=== PATIENT | female | born 1955 | race Hispanic/Latino ===

== ENCOUNTER 2020-12-07 18:35 | Inpatient (IN) | payer OTHER ==
[~2020-12-07] VITALS: Ht 160 cm; Wt 39.5 kg
[2020-12-07] MEDS: SODIUM CHLORIDE 0.9% 1000ML 1,000 ML IV SCH (01:30)
[2020-12-07 19:46] LABS: BASOPHILS % 0.2 % (0.0-1.0); EOSINOPHILS % 0.3 % (0.0-6.0); HEMATOCRIT 42.6 % (34.2-44.1); HEMOGLOBIN 14.1 g/dL (12.0-16.0); LYMPHOCYTES # (AUTO) 1.7 (1.0-3.2); LYMPHOCYTES % 18.4 % (18.0-39.1); MEAN CORPUSCULAR HEMOGLOBIN 30.7 pg (28-32); MEAN CORPUSCULAR HGB CONC 33.1 g/dL (31-35); MEAN CORPUSCULAR VOLUME 92.6 fL (81-99); MONOCYTES # (AUTO) 1.1 (0.2-0.8); MONOCYTES % 11.5 % (4.4-11.3); NEUTROPHILS # (AUTO) 6.4 (2.1-6.9); NEUTROPHILS % 69.4 % (38.7-80.0); PLATELET COUNT 290 x10e3/uL (140-360)
[2020-12-07 20:04] LABS: ALANINE AMINOTRANSFERASE 12 IU/L (0-55); ALBUMIN 4.4 g/dL (3.5-5.0); ALBUMIN/GLOBULIN RATIO 1.3 (0.8-2.0); ALKALINE PHOSPHATASE 65 IU/L (40-150); ANION GAP 17.6 mmol/L (8-16); BLOOD UREA NITROGEN 26 mg/dL (7-26); BUN/CREATININE RATIO 43 (6-25); CALCIUM 9.5 mg/dL (8.4-10.2); CARBON DIOXIDE 26 mmol/L (22-29); CHLORIDE 102 mmol/L (98-107); CREATINE KINASE 295 IU/L (29-168); CREATININE, SERUM 0.61 mg/dL (0.57-1.11); EST GLOMERULAR FILTRATION RATE > 60 ML/MIN (60-); GLUCOSE 97 mg/dL (74-118); POTASSIUM 3.6 mmol/L (3.5-5.1); SODIUM 142 mmol/L (136-145)
[2020-12-07] MEDS ORDERED: SODIUM CHLORIDE 0.9% 1000ML 1,000 ML IV STA (20:05)
[2020-12-07] MEDS ORDERED: SODIUM CHLORIDE 0.9% 1000ML 1,000 ML ONE (20:16)
[2020-12-07] MEDS ORDERED: SODIUM CHLORIDE 0.9% 1000ML 1,000 ML IV ONE (22:00)
[2020-12-07 22:28] LABS: CLARITY,URINE SL CLOUDY (CLEAR); COLOR,URINE YELLOW (YELLOW); KETONES,URINE 2+ (NEGATIVE); LEUKOCYTE ESTERASE ,URINE TRACE (NEGATIVE); NITRITE,URINE NEGATIVE (NEGATIVE); PROTEIN,URINE DIPSTICK NEGATIVE (NEGATIVE); URINE UROBILINOGEN 1 mg/dL (0.2 - 1)
[2020-12-07 22:51] LABS: BACTERIA,URINE MANY /HPF
[2020-12-07 22:52] LABS: EPITHELIAL CELLS,URINE FEW /LPF; HYALINE CASTS 0-1 (0-1); MUCUS,URINE FEW (RARE)
[2020-12-08] VITALS (9 sets, daily range): BP systolic 119–164; BP diastolic 59–86
[2020-12-08] MEDS: DEXTROSE 50% SYRINGE 50 ML IV PRN ×2 (01:15→11:23)
[2020-12-08 05:33] LABS: BASOPHILS % 0.2 % (0.0-1.0); EOSINOPHILS % 0.2 % (0.0-6.0); HEMATOCRIT 36.9 % (34.2-44.1); HEMOGLOBIN 12.2 g/dL (12.0-16.0); LYMPHOCYTES # (AUTO) 1.5 (1.0-3.2); LYMPHOCYTES % 16.9 % (18.0-39.1); MEAN CORPUSCULAR HEMOGLOBIN 30.8 pg (28-32); MEAN CORPUSCULAR HGB CONC 33.1 g/dL (31-35); MEAN CORPUSCULAR VOLUME 93.2 fL (81-99); MONOCYTES # (AUTO) 1.1 (0.2-0.8); NEUTROPHILS # (AUTO) 6.2 (2.1-6.9); NEUTROPHILS % 70.5 % (38.7-80.0); PLATELET COUNT 235 x10e3/uL (140-360); RED BLOOD COUNT 3.96 x10e6/uL (3.6-5.1); RED CELL DISTRIBUTION WIDTH 13.1 % (11.7-14.4)
[2020-12-08 06:01] LABS: CREATINE KINASE MB 1.9 ng/mL (0-5.0)
[2020-12-08] MEDS ORDERED: INSULIN REGULAR, HUMAN 100 UNIT/1 ML 3ML VIAL SQ SCH (07:30)
[2020-12-08] MEDS ORDERED: HYDROXYZINE HCL25 MG PO (09:54)
[2020-12-08] MEDS ORDERED: CARBIDOPA-LEVO1 EA10 PO (09:54)
[2020-12-08] MEDS ORDERED: AMANTADINE100 M1 PO (09:54)
[2020-12-08] MEDS ORDERED: METFORMIN HCL500 MG PO (09:54)
[2020-12-08] MEDS ORDERED: CYMBALTA30 MG PO (09:54)
[2020-12-08] MEDS ORDERED: ATORVASTATIN CA20 MG PO (09:54)
[2020-12-08] MEDS ORDERED: OMEPRAZOLE10 MG PO (09:54)
[2020-12-08] MEDS ORDERED: ZESTRIL10 MG PO (09:54)
[2020-12-08] MEDS ORDERED: BAYER WOMEN'S1 EACH PO (09:57)
[2020-12-08] MEDS ORDERED: NASONEX17 GM (09:57)
[2020-12-08] MEDS ORDERED: HYDRALAZINE HCL 20 MG/ML VIAL IV PRN (10:30)
[2020-12-08] MEDS: INSULIN REGULAR, HUMAN 100 UNIT/1 ML 3ML VIAL SQ SCH ×2 (11:00→18:00)
[2020-12-08] MEDS: CEFTRIAXONE SOD 1 GM in SODIUM CHLORIDE 0.9% 50ML 50 ML IV SCH (11:02)
[2020-12-08] MEDS: LORAZEPAM INJ 2 MG/ML VIAL IV PRN ×2 (11:02→20:56)
[2020-12-08] MEDS: FAMOTIDINE 20 MG/2 ML VIAL IV SCH ×2 (11:02→20:53)
[2020-12-08] MEDS: SODIUM CHLORIDE 0.9% 1000ML 1,000 ML IV SCH (11:05)
[2020-12-08] MEDS: CARBIDOPA/LEVODOPA 25/100 TAB PO SCH ×3 (13:00→20:57)
[2020-12-08] MEDS ORDERED: LEVODOPA PO SCH (13:00)
[2020-12-08] MEDS ORDERED: CARBIDOPA PO SCH (13:00)
[2020-12-08] MEDS ORDERED: PROPOFOL IV EMULSION 10 MG/ML 20 ML VIAL ONE (13:27)
[2020-12-08 14:45] LABS: CREATINE KINASE MB 1.7 ng/mL (0-5.0)
[2020-12-08] MEDS: AMANTADINE HCL 100 MG CAP PO SCH (15:57)
[2020-12-08] MEDS ORDERED: AMANTADINE HCL PO SCH (17:00)
[2020-12-08] MEDS ORDERED: DEXTROSE 5% 250ML 250 ML IV ONE (17:05)
[2020-12-08] MEDS: ACETAMINOPHEN 1000 MG/100 ML IV PRN (20:57)
[2020-12-08 22:03] LABS: CREATINE KINASE MB 1.4 ng/mL (0-5.0)
[2020-12-09] VITALS (8 sets, daily range): BP systolic 125–139; BP diastolic 50–74
[2020-12-09] MEDS: DEXTROSE 5%/0.9% SOD CHL 1,000 ML IV SCH ×2 (03:47→03:48)
[2020-12-09 05:09] LABS: BASOPHILS % 0.2 % (0.0-1.0); EOSINOPHILS % 0.1 % (0.0-6.0); HEMATOCRIT 37.4 % (34.2-44.1); HEMOGLOBIN 12.7 g/dL (12.0-16.0); LYMPHOCYTES # (AUTO) 1.2 (1.0-3.2); LYMPHOCYTES % 10.9 % (18.0-39.1); MEAN CORPUSCULAR HEMOGLOBIN 30.8 pg (28-32); MEAN CORPUSCULAR VOLUME 90.8 fL (81-99); MONOCYTES # (AUTO) 0.8 (0.2-0.8); MONOCYTES % 7.9 % (4.4-11.3); NEUTROPHILS # (AUTO) 8.6 (2.1-6.9); NEUTROPHILS % 80.7 % (38.7-80.0); PLATELET COUNT 219 x10e3/uL (140-360); RED BLOOD COUNT 4.12 x10e6/uL (3.6-5.1); RED CELL DISTRIBUTION WIDTH 12.8 % (11.7-14.4)
[2020-12-09 05:32] LABS: ANION GAP 13.8 mmol/L (8-16); BLOOD UREA NITROGEN < 5 mg/dL (7-26); CALCIUM 8.2 mg/dL (8.4-10.2); CARBON DIOXIDE 28 mmol/L (22-29); CHLORIDE 101 mmol/L (98-107); CREATININE, SERUM 0.56 mg/dL (0.57-1.11); EST GLOMERULAR FILTRATION RATE > 60 ML/MIN (60-); GLUCOSE 126 mg/dL (74-118); SODIUM 140 mmol/L (136-145)
[2020-12-09] MEDS: INSULIN REGULAR, HUMAN 100 UNIT/1 ML 3ML VIAL SQ SCH ×4 (05:57→17:45)
[2020-12-09 06:09] LABS: BUN/CREATININE RATIO 9 (6-25)
[2020-12-09 06:10] LABS: POTASSIUM 2.8 mmol/L (3.5-5.1)
[2020-12-09] MEDS ORDERED: SOD CHL IV ONE (06:50)
[2020-12-09] MEDS ORDERED: DEXTROSE IV ONE (06:50)
[2020-12-09] MEDS ORDERED: POTASSIUM CHL IV ONE (06:50)
[2020-12-09] MEDS: AMANTADINE HCL 100 MG CAP PO SCH ×2 (09:00→16:10)
[2020-12-09] MEDS: CARBIDOPA/LEVODOPA 25/100 TAB PO SCH ×4 (09:00→21:36)
[2020-12-09] MEDS: FAMOTIDINE 20 MG/2 ML VIAL IV SCH ×2 (09:01→21:36)
[2020-12-09] MEDS: CEFTRIAXONE SOD 1 GM in SODIUM CHLORIDE 0.9% 50ML 50 ML IV SCH (11:00)
[2020-12-09] MEDS: ACETAMINOPHEN 1000 MG/100 ML IV PRN (16:41)
[2020-12-09] MEDS: D5.45%NS/KCL 20MEQ 1,000 ML IV SCH (19:42)
[2020-12-10] VITALS: BP 135/71
[2020-12-10] MEDS: INSULIN REGULAR, HUMAN 100 UNIT/1 ML 3ML VIAL SQ SCH ×4 (00:40→18:00)
[2020-12-10 04:00] VITALS: BP 128/68
[2020-12-10] MEDS: D5.45%NS/KCL 20MEQ 1,000 ML IV SCH (06:08)
[2020-12-10 06:15] LABS: BASOPHILS % 0.3 % (0.0-1.0); EOSINOPHILS % 0.3 % (0.0-6.0); HEMATOCRIT 38.3 % (34.2-44.1); HEMOGLOBIN 12.9 g/dL (12.0-16.0); LYMPHOCYTES # (AUTO) 1.1 (1.0-3.2); LYMPHOCYTES % 10.4 % (18.0-39.1); MEAN CORPUSCULAR HEMOGLOBIN 30.7 pg (28-32); MEAN CORPUSCULAR HGB CONC 33.7 g/dL (31-35); MEAN CORPUSCULAR VOLUME 91.2 fL (81-99); MONOCYTES # (AUTO) 0.8 (0.2-0.8); MONOCYTES % 7.8 % (4.4-11.3); NEUTROPHILS # (AUTO) 8.1 (2.1-6.9); NEUTROPHILS % 80.8 % (38.7-80.0); PLATELET COUNT 237 x10e3/uL (140-360); RED CELL DISTRIBUTION WIDTH 13.2 % (11.7-14.4)
[2020-12-10 06:36] LABS: ANION GAP 11.6 mmol/L (8-16); BLOOD UREA NITROGEN 5 mg/dL (7-26); BUN/CREATININE RATIO 10 (6-25); CARBON DIOXIDE 28 mmol/L (22-29); CHLORIDE 104 mmol/L (98-107); CREATININE, SERUM 0.51 mg/dL (0.57-1.11); EST GLOMERULAR FILTRATION RATE > 60 ML/MIN (60-); GLUCOSE 131 mg/dL (74-118); POTASSIUM 3.6 mmol/L (3.5-5.1); SODIUM 140 mmol/L (136-145)
[2020-12-10 07:26] LABS: MAGNESIUM 1.4 MG/DL (1.3-2.1); PHOSPHORUS 2.1 MG/DL (2.3-4.7)
[2020-12-10 08:02] VITALS: BP 137/65
[2020-12-10] MEDS: CARBIDOPA/LEVODOPA 25/100 TAB PO SCH ×3 (09:00→17:40)
[2020-12-10] MEDS: FAMOTIDINE 20 MG/2 ML VIAL IV SCH (09:00)
[2020-12-10] MEDS: AMANTADINE HCL 100 MG CAP PO SCH ×2 (09:00→16:58)
[2020-12-10] MEDS ORDERED: MAGNESIUM SULFATE 2GM/50ML IV ONE (09:15)
[2020-12-10] MEDS ORDERED: LORAZEPAM 0.5 MG TAB PEG PRN (09:15)
[2020-12-10 09:44] VITALS: BP 137/65
[2020-12-10] MEDS ORDERED: MAGNESIUM SULFATE 2GM/50ML 50 ML IV ONE (09:45)
[2020-12-10] MEDS ORDERED: POTASSIUM PHOSPHATE 20 MM in SODIUM CHLORIDE 0.9% 250ML 250 ML IV ONE (10:30)
[2020-12-10 12:42] VITALS: BP 143/60
[2020-12-10] MEDS: CEPHALEXIN 500 MG CAP PEG SCH ×2 (14:33→17:40)
[2020-12-10] MEDS ORDERED: FAMOTIDINE 20 MG TAB PEG SCH (16:30)
[2020-12-10 17:11] VITALS: BP 138/75
== END 2020-12-10 19:00 | disposition hospice, inpatient (51) | DRG 640 ==
LOC: ER 19:24 → ERHOLD 21:52 → MED/SURG2 23:05 → OBSVTOIN 12-08 10:19
PROVIDERS: ADMIT Internal Medicine; ATTEND Internal Medicine
PROC: 0DH63UZ Insertion of Feeding Device into Stomach, Percutaneous Approach (ICD-10-PCS; principal; 2020-12-08 16:00)
DX: R62.7 Adult failure to thrive (principal); J69.0 Pneumonitis due to inhalation of food and vomit; N39.0 Urinary tract infection, site not specified; E44.0 Moderate protein-calorie malnutrition; Z68.1 Body mass index [BMI] 19.9 or less, adult; G20 Parkinson's disease; F02.80 Dementia in other diseases classified elsewhere, unspecified severity, without behavioral disturbance, psychotic disturbance, mood disturbance, and anxiety; K20.90 Esophagitis, unspecified without bleeding; K29.70 Gastritis, unspecified, without bleeding; N31.9 Neuromuscular dysfunction of bladder, unspecified; R31.29 Other microscopic hematuria; Z20.822 Contact with and (suspected) exposure to COVID-19; Z74.01 Bed confinement status
CPT/HCPCS: 36415; 43246; 51700; 80048; 80053; 81001; 82550; 82553; 82607; 82746; 82948; 83036; 83690; 83735; 84100; 84443; 84484; 85025; 87086; 96361; 99284; G0378; J0696; J2060; J3475; J3480; J7030; J7042; J7050; J7070; J7799; U0002

== ENCOUNTER 2021-01-04 13:03 | Inpatient (IN) | payer OTHER ==
[~2021-01-04] VITALS: Ht 160 cm; Wt 41.3 kg
[~2021-01-04 13:03] MED LIST: AMANTADINE100 M1 PO; ATORVASTATIN CA20 MG PO; BAYER WOMEN'S1 EACH PO; CARBIDOPA-LEVO1 EA10 PO; CYMBALTA30 MG PO; HYDROXYZINE HCL25 MG PO; METFORMIN HCL500 MG PO; NASONEX17 GM; OMEPRAZOLE10 MG PO; ZESTRIL10 MG PO
[2021-01-04] MEDS ORDERED: SODIUM CHLORIDE 0.9% 1000ML 1,000 ML IV STA (14:25)
[2021-01-04 15:07] LABS: BASOPHILS % 0.3 % (0.0-1.0); EOSINOPHILS # (AUTO) 0.1 (0.0-0.4); EOSINOPHILS % 0.7 % (0.0-6.0); HEMATOCRIT 40.4 % (34.2-44.1); HEMOGLOBIN 13.1 g/dL (12.0-16.0); LYMPHOCYTES # (AUTO) 1.2 (1.0-3.2); LYMPHOCYTES % 15.9 % (18.0-39.1); MEAN CORPUSCULAR HEMOGLOBIN 29.8 pg (28-32); MEAN CORPUSCULAR HGB CONC 32.4 g/dL (31-35); MONOCYTES # (AUTO) 0.9 (0.2-0.8); MONOCYTES % 11.6 % (4.4-11.3); NEUTROPHILS # (AUTO) 5.4 (2.1-6.9); NEUTROPHILS % 71.2 % (38.7-80.0); PLATELET COUNT 403 x10e3/uL (140-360); RED BLOOD COUNT 4.39 x10e6/uL (3.6-5.1); RED CELL DISTRIBUTION WIDTH 13.1 % (11.7-14.4)
[2021-01-04 15:41] LABS: INR 1.03; PROTHROMBIN TIME 14.1 seconds (11.9-14.5)
[2021-01-04 15:42] LABS: PARTIAL THROMBOPLASTIN TIME 32.7 seconds (23.8-35.5)
[2021-01-04 15:54] LABS: ALANINE AMINOTRANSFERASE 26 IU/L (0-55); ALBUMIN 3.3 g/dL (3.5-5.0); ALBUMIN/GLOBULIN RATIO 0.7 (0.8-2.0); ALKALINE PHOSPHATASE 109 IU/L (40-150); ANION GAP 15.9 mmol/L (8-16); BLOOD UREA NITROGEN 11 mg/dL (7-26); BUN/CREATININE RATIO 20 (6-25); CALCIUM 9.3 mg/dL (8.4-10.2); CARBON DIOXIDE 27 mmol/L (22-29); CHLORIDE 99 mmol/L (98-107); CREATININE, SERUM 0.55 mg/dL (0.57-1.11); EST GLOMERULAR FILTRATION RATE > 60 ML/MIN (60-); GLUCOSE 138 mg/dL (74-118); MAGNESIUM 1.9 MG/DL (1.3-2.1); POTASSIUM 3.9 mmol/L (3.5-5.1); SODIUM 138 mmol/L (136-145)
[2021-01-04] MEDS ORDERED: SODIUM CHLORIDE 0.9% 50ML 50 ML ONE (17:39)
[2021-01-04] MEDS ORDERED: IOPAMIDOL 370 MG/ML 200 ML INFUS..BTL INJ ONE (17:39)
[2021-01-04] MEDS: SODIUM CHLORIDE 0.9% 1000ML 1,000 ML IV SCH (19:18)
[2021-01-04] MEDS: PIPERACILLIN/TAZOBAC 3.375 GM in SODIUM CHLORIDE 0.9% 50ML 50 ML IV SCH (19:18)
[2021-01-04 20:20] VITALS: BP 155/97
[2021-01-04 21:10] VITALS: BP 149/117
[2021-01-04] MEDS: ONDANSETRON HCL INJ 2MG/ML 2ML 2 MG/ML VIAL IV PRN (21:41)
[2021-01-04] MEDS: MORPHINE SULFATE INJ 4 MG/ML INJ 1ML IV PRN (21:41)
[2021-01-04 22:30] VITALS: BP 142/74
[2021-01-05] VITALS (8 sets, daily range): BP systolic 132–151; BP diastolic 66–73
[2021-01-05] MEDS ORDERED: METRONIDAZOLE 500MG/NS 100ML 100 ML IV STA (00:33)
[2021-01-05] MEDS: PIPERACILLIN/TAZOBAC 3.375 GM in SODIUM CHLORIDE 0.9% 50ML 50 ML IV SCH ×4 (01:33→21:54)
[2021-01-05] MEDS: SODIUM CHLORIDE 0.9% 1000ML 1,000 ML IV SCH ×2 (02:42→17:24)
[2021-01-05 04:58] LABS: BASOPHILS % 0.3 % (0.0-1.0); EOSINOPHILS % 0.1 % (0.0-6.0); HEMATOCRIT 34.9 % (34.2-44.1); HEMOGLOBIN 11.5 g/dL (12.0-16.0); LYMPHOCYTES # (AUTO) 1.4 (1.0-3.2); MEAN CORPUSCULAR HEMOGLOBIN 29.9 pg (28-32); MEAN CORPUSCULAR VOLUME 90.9 fL (81-99); MONOCYTES % 8.3 % (4.4-11.3); NEUTROPHILS % 78.9 % (38.7-80.0); PLATELET COUNT 347 x10e3/uL (140-360); RED BLOOD COUNT 3.84 x10e6/uL (3.6-5.1); RED CELL DISTRIBUTION WIDTH 13.1 % (11.7-14.4)
[2021-01-05 05:34] LABS: ALANINE AMINOTRANSFERASE 33 IU/L (0-55); ALBUMIN 2.9 g/dL (3.5-5.0); ALBUMIN/GLOBULIN RATIO 0.8 (0.8-2.0); ALKALINE PHOSPHATASE 86 IU/L (40-150); ANION GAP 16.4 mmol/L (8-16); BLOOD UREA NITROGEN 9 mg/dL (7-26); BUN/CREATININE RATIO 18 (6-25); CALCIUM 8.1 mg/dL (8.4-10.2); CARBON DIOXIDE 22 mmol/L (22-29); CHLORIDE 104 mmol/L (98-107); CREATININE, SERUM 0.49 mg/dL (0.57-1.11); EST GLOMERULAR FILTRATION RATE > 60 ML/MIN (60-); GLUCOSE 82 mg/dL (74-118); POTASSIUM 3.4 mmol/L (3.5-5.1); SODIUM 139 mmol/L (136-145)
[2021-01-05] MEDS ORDERED: METRONIDAZOLE 500MG/NS 100ML 100 ML IV SCH (06:00)
[2021-01-05] MEDS ORDERED: HYDRALAZINE HCL 20 MG/ML VIAL IV PRN (09:15)
[2021-01-05] MEDS ORDERED: METOPROLOL TARTRATE INJ 1 MG/ML VIAL IV PRN (09:15)
[2021-01-05] MEDS: AMANTADINE HCL 100 MG CAP PO SCH ×2 (10:00→17:00)
[2021-01-05] MEDS: FAMOTIDINE 20 MG/2 ML VIAL IV SCH ×2 (10:59→17:24)
[2021-01-05] MEDS: METRONIDAZOLE 500MG/NS 100ML 100 ML IV SCH ×2 (11:44→20:47)
[2021-01-05] MEDS: CARBIDOPA/LEVODOPA 25/100 TAB PO SCH ×3 (12:29→20:47)
[2021-01-05] MEDS ORDERED: DEXTROSE 5% 250ML 250 ML IV ONE (15:13)
[2021-01-05] MEDS ORDERED: KETOROLAC TROMETHAMINE 30 MG/ML VIAL ONE (19:17)
[2021-01-05] MEDS ORDERED: POVIDONE IODINE 0.05% 0.05 % ML PO ONE (19:17)
[2021-01-05] MEDS ORDERED: SEVOFLURANE INHAL SOLN 250 ML PEN BTL ONE (19:17)
[2021-01-05] MEDS ORDERED: PROPOFOL IV EMULSION 10 MG/ML 20 ML VIAL ONE (19:17)
[2021-01-05] MEDS ORDERED: GLYCOPYRROLATE INJ 0.2 MG/ML VIAL ONE (19:17)
[2021-01-05] MEDS ORDERED: ONDANSETRON HCL INJ 2MG/ML 2ML 2 MG/ML VIAL ONE (19:17)
[2021-01-05] MEDS ORDERED: EPHEDRINE SULFATE INJ 50 MG/ML VIAL ONE (19:17)
[2021-01-05] MEDS ORDERED: LIDOCAINE HCL 2% LOCAL INJ 5 ML SDV VIAL INJ ONE (19:17)
[2021-01-05] MEDS ORDERED: DEXAMETHASONE SOD PHOS INJ 4 MG/ML VIAL ONE (19:17)
[2021-01-05] MEDS: MORPHINE SULFATE INJ 4 MG/ML INJ 1ML IV PRN (23:01)
[2021-01-06] VITALS (7 sets, daily range): BP systolic 92–135; BP diastolic 47–73
[2021-01-06] MEDS: SODIUM CHLORIDE 0.9% 1000ML 1,000 ML IV SCH (01:18)
[2021-01-06 05:01] LABS: BASOPHILS % 0.4 % (0.0-1.0); EOSINOPHILS % 0.1 % (0.0-6.0); HEMATOCRIT 36.3 % (34.2-44.1); LYMPHOCYTES # (AUTO) 1.1 (1.0-3.2); MEAN CORPUSCULAR HEMOGLOBIN 29.9 pg (28-32); MEAN CORPUSCULAR HGB CONC 33.1 g/dL (31-35); MEAN CORPUSCULAR VOLUME 90.3 fL (81-99); MONOCYTES % 8.7 % (4.4-11.3); NEUTROPHILS # (AUTO) 8.8 (2.1-6.9); NEUTROPHILS % 80.4 % (38.7-80.0); PLATELET COUNT 320 x10e3/uL (140-360); RED BLOOD COUNT 4.02 x10e6/uL (3.6-5.1); RED CELL DISTRIBUTION WIDTH 13.1 % (11.7-14.4)
[2021-01-06 05:28] LABS: BLOOD UREA NITROGEN 10 mg/dL (7-26); BUN/CREATININE RATIO 20 (6-25); CALCIUM 8.3 mg/dL (8.4-10.2); CARBON DIOXIDE 23 mmol/L (22-29); CHLORIDE 101 mmol/L (98-107); CREATININE, SERUM 0.49 mg/dL (0.57-1.11); EST GLOMERULAR FILTRATION RATE > 60 ML/MIN (60-); SODIUM 140 mmol/L (136-145)
[2021-01-06 05:33] LABS: GLUCOSE 56 mg/dL (74-118)
[2021-01-06 05:39] LABS: MAGNESIUM 1.7 MG/DL (1.3-2.1)
[2021-01-06 05:59] LABS: THYROID STIMULATING HORMONE 2.716 uIU/mL (0.350-4.940)
[2021-01-06] MEDS: METRONIDAZOLE 500MG/NS 100ML 100 ML IV SCH (08:53)
[2021-01-06] MEDS: CARBIDOPA/LEVODOPA 25/100 TAB PO SCH ×4 (08:56→21:34)
[2021-01-06] MEDS: AMANTADINE HCL 100 MG CAP PO SCH ×2 (08:56→17:00)
[2021-01-06] MEDS: FAMOTIDINE 20 MG/2 ML VIAL IV SCH ×2 (08:56→18:01)
[2021-01-06] MEDS ORDERED: COLLAGENASE OINTMENT 30 GM TUBE TP SCH (09:00)
[2021-01-06] MEDS: COLLAGENASE 5 GM TUBE TP SCH (09:11)
[2021-01-06] MEDS ORDERED: METRONIDAZOLE 500 MG TAB GT SCH (10:00)
[2021-01-06] MEDS ORDERED: KCL 20 MEQ PACKET/ ORAL SOLN NG ONE (10:30)
[2021-01-06] MEDS: PIPERACILLIN/TAZOBAC 3.375 GM in SODIUM CHLORIDE 0.9% 50ML 50 ML IV SCH ×2 (11:53→21:51)
[2021-01-06] MEDS ORDERED: MIDAZOLAM HCL 2 MG/2 ML VIAL ONE (12:21)
[2021-01-06] MEDS ORDERED: FENTANYL CITRATE/PF 100MCG/2 ML INJ ONE (12:21)
[2021-01-06] MEDS: METRONIDAZOLE 500 MG TAB GT SCH ×2 (14:37→21:34)
[2021-01-06] MEDS: MORPHINE SULFATE INJ 4 MG/ML INJ 1ML IV PRN (21:35)
[2021-01-06] MEDS: ONDANSETRON HCL INJ 2MG/ML 2ML 2 MG/ML VIAL IV PRN (21:35)
[2021-01-07] VITALS (9 sets, daily range): BP systolic 108–132; BP diastolic 47–62
[2021-01-07 05:00] LABS: BASOPHILS % 0.2 % (0.0-1.0); EOSINOPHILS # (AUTO) 0.1 (0.0-0.4); EOSINOPHILS % 0.7 % (0.0-6.0); HEMATOCRIT 38.4 % (34.2-44.1); HEMOGLOBIN 12.8 g/dL (12.0-16.0); LYMPHOCYTES # (AUTO) 1.3 (1.0-3.2); LYMPHOCYTES % 14.7 % (18.0-39.1); MEAN CORPUSCULAR HGB CONC 33.3 g/dL (31-35); MEAN CORPUSCULAR VOLUME 90.1 fL (81-99); MONOCYTES # (AUTO) 1.1 (0.2-0.8); MONOCYTES % 12.5 % (4.4-11.3); NEUTROPHILS # (AUTO) 6.1 (2.1-6.9); NEUTROPHILS % 71.5 % (38.7-80.0); PLATELET COUNT 357 x10e3/uL (140-360); RED BLOOD COUNT 4.26 x10e6/uL (3.6-5.1)
[2021-01-07 05:17] LABS: MAGNESIUM 1.9 MG/DL (1.3-2.1)
[2021-01-07] MEDS: METRONIDAZOLE 500 MG TAB GT SCH ×3 (05:23→20:59)
[2021-01-07 06:01] LABS: ANION GAP 14.3 mmol/L (8-16); BLOOD UREA NITROGEN 11 mg/dL (7-26); BUN/CREATININE RATIO 22 (6-25); CALCIUM 8.7 mg/dL (8.4-10.2); CARBON DIOXIDE 29 mmol/L (22-29); CHLORIDE 101 mmol/L (98-107); CREATININE, SERUM 0.51 mg/dL (0.57-1.11); EST GLOMERULAR FILTRATION RATE > 60 ML/MIN (60-); GLUCOSE 140 mg/dL (74-118); POTASSIUM 3.3 mmol/L (3.5-5.1); SODIUM 141 mmol/L (136-145)
[2021-01-07] MEDS: FAMOTIDINE 20 MG/2 ML VIAL IV SCH ×2 (08:54→16:48)
[2021-01-07] MEDS: PIPERACILLIN/TAZOBAC 3.375 GM in SODIUM CHLORIDE 0.9% 50ML 50 ML IV SCH ×2 (08:55→20:59)
[2021-01-07] MEDS: CARBIDOPA/LEVODOPA 25/100 TAB PO SCH ×4 (08:55→20:59)
[2021-01-07] MEDS: AMANTADINE HCL 100 MG CAP PO SCH ×2 (08:56→16:48)
[2021-01-07] MEDS ORDERED: KCL 20 MEQ PACKET/ ORAL SOLN NG ONE (09:30)
[2021-01-07] MEDS: COLLAGENASE 5 GM TUBE TP SCH (09:34)
[2021-01-07] MEDS ORDERED: POTASSIUM PHOSPHATE 20 MM in SODIUM CHLORIDE 0.9% 250ML 250 ML IV ONE (10:00)
[2021-01-07 13:34] LABS: BASOPHILS % 0.3 % (0.0-1.0); EOSINOPHILS % 0.4 % (0.0-6.0); HEMATOCRIT 36.9 % (34.2-44.1); HEMOGLOBIN 12.2 g/dL (12.0-16.0); LYMPHOCYTES # (AUTO) 1.1 (1.0-3.2); LYMPHOCYTES % 15.7 % (18.0-39.1); MEAN CORPUSCULAR HGB CONC 33.1 g/dL (31-35); MEAN CORPUSCULAR VOLUME 90.7 fL (81-99); MONOCYTES % 13.4 % (4.4-11.3); NEUTROPHILS % 69.9 % (38.7-80.0); PLATELET COUNT 371 x10e3/uL (140-360); RED BLOOD COUNT 4.07 x10e6/uL (3.6-5.1); RED CELL DISTRIBUTION WIDTH 13.2 % (11.7-14.4)
[2021-01-07 13:52] LABS: INR 1.12
[2021-01-07] MEDS ORDERED: PHYTONADIONE 10MG/ML 20 MG in SODIUM CHLORIDE 0.9% 50ML 50 ML IV ONE (16:00)
[2021-01-07] MEDS: MORPHINE SULFATE INJ 4 MG/ML INJ 1ML IV PRN (20:58)
[2021-01-07] MEDS: ONDANSETRON HCL INJ 2MG/ML 2ML 2 MG/ML VIAL IV PRN (20:59)
[2021-01-08 00:04] VITALS: BP 106/47
[2021-01-08] MEDS: MORPHINE SULFATE INJ 4 MG/ML INJ 1ML IV PRN ×2 (01:11→05:01)
[2021-01-08 04:39] VITALS: BP 136/66
[2021-01-08] MEDS: METRONIDAZOLE 500 MG TAB GT SCH (04:54)
[2021-01-08 05:05] LABS: BASOPHILS % 0.3 % (0.0-1.0); EOSINOPHILS # (AUTO) 0.1 (0.0-0.4); EOSINOPHILS % 1.4 % (0.0-6.0); HEMATOCRIT 40.1 % (34.2-44.1); LYMPHOCYTES # (AUTO) 1.3 (1.0-3.2); LYMPHOCYTES % 21.8 % (18.0-39.1); MEAN CORPUSCULAR HEMOGLOBIN 29.7 pg (28-32); MEAN CORPUSCULAR HGB CONC 32.4 g/dL (31-35); MEAN CORPUSCULAR VOLUME 91.6 fL (81-99); MONOCYTES # (AUTO) 0.8 (0.2-0.8); MONOCYTES % 13.8 % (4.4-11.3); NEUTROPHILS # (AUTO) 3.6 (2.1-6.9); NEUTROPHILS % 62.2 % (38.7-80.0); PLATELET COUNT 386 x10e3/uL (140-360); RED BLOOD COUNT 4.38 x10e6/uL (3.6-5.1); RED CELL DISTRIBUTION WIDTH 13.1 % (11.7-14.4)
[2021-01-08 05:36] LABS: ALANINE AMINOTRANSFERASE 16 IU/L (0-55); ALBUMIN 2.9 g/dL (3.5-5.0); ALBUMIN/GLOBULIN RATIO 0.7 (0.8-2.0); ALKALINE PHOSPHATASE 82 IU/L (40-150); ANION GAP 12.1 mmol/L (8-16); BLOOD UREA NITROGEN 13 mg/dL (7-26); BUN/CREATININE RATIO 25 (6-25); CARBON DIOXIDE 31 mmol/L (22-29); CHLORIDE 102 mmol/L (98-107); CREATININE, SERUM 0.53 mg/dL (0.57-1.11); EST GLOMERULAR FILTRATION RATE > 60 ML/MIN (60-); GLUCOSE 147 mg/dL (74-118); POTASSIUM 4.1 mmol/L (3.5-5.1); SODIUM 141 mmol/L (136-145)
[2021-01-08 07:43] VITALS: BP 151/67
[2021-01-08] MEDS: PIPERACILLIN/TAZOBAC 3.375 GM in SODIUM CHLORIDE 0.9% 50ML 50 ML IV SCH (08:26)
[2021-01-08] MEDS: FAMOTIDINE 20 MG/2 ML VIAL IV SCH (08:26)
[2021-01-08] MEDS: CARBIDOPA/LEVODOPA 25/100 TAB PO SCH (08:26)
[2021-01-08] MEDS: AMANTADINE HCL 100 MG CAP PO SCH (08:26)
[2021-01-08 09:06] VITALS: BP 151/67
[2021-01-08] MEDS: COLLAGENASE 5 GM TUBE TP SCH (09:16)
[2021-01-08 11:07] VITALS: BP 135/51
== END 2021-01-08 12:19 | DRG 393 ==
LOC: ER 13:21 → ERHOLD 18:09 → IMCU 20:07 → MED/SURG2 01-05 11:55
PROVIDERS: ADMIT Internal Medicine; ATTEND Internal Medicine
PROC: 0DH63UZ Insertion of Feeding Device into Stomach, Percutaneous Approach (ICD-10-PCS; 2021-01-05)
PROC: 0DP68UZ Removal of Feeding Device from Stomach, Via Natural or Artificial Opening Endoscopic (ICD-10-PCS; principal; 2021-01-05 14:00)
DX: K94.23 Gastrostomy malfunction (principal); K65.0 Generalized (acute) peritonitis; E43 Unspecified severe protein-calorie malnutrition; Z68.1 Body mass index [BMI] 19.9 or less, adult; G20 Parkinson's disease; E11.9 Type 2 diabetes mellitus without complications; K21.9 Gastro-esophageal reflux disease without esophagitis; I10 Essential (primary) hypertension; E78.5 Hyperlipidemia, unspecified; R62.7 Adult failure to thrive; K20.90 Esophagitis, unspecified without bleeding; K29.70 Gastritis, unspecified, without bleeding; F41.9 Anxiety disorder, unspecified; Z20.822 Contact with and (suspected) exposure to COVID-19; K52.89 Other specified noninfective gastroenteritis and colitis; L89.150 Pressure ulcer of sacral region, unstageable
CPT/HCPCS: 36415; 43246; 74177; 80048; 80053; 82607; 82746; 82948; 83735; 84100; 84443; 85025; 85610; 85730; 87040; 96361; 99251; 99284; J1100; J1885; J2001; J2250; J2270; J2405; J2543; J3010; J3430; J7030; J7050; J7070; Q9967; U0002